=== PATIENT | male | born 1950 | race Caucasian/White ===

== ENCOUNTER 2016-12-02 05:15 | Inpatient (IN) ==
[2016-11-17 10:09] LABS: Basophils % 0.3 % (0.0-0.8); Eosinophils # 0.1 10*3/uL (0.0-0.87); Eosinophils % 1.2 % (0.00-10.9); Hematocrit 48.7 VOL% (42.0-52.0); Immature Granulocytes % 1.6 %; Immature Granulocytes Absolute 0.15 #; Lymphocytes # 1.6 10*3/uL (1.4-4.0); Lymphocytes % 17.3 % (21.2-54.2); Mean Corpuscular HGB Conc 34.9 GM/DL (32-36); Mean Corpuscular Hemoglobin 30 PG (27-34); Mean Corpuscular Volume 84.8 FL (87-102); Mean Platelet Volume 8.7 FL (9.6-12.0); Monocytes # 0.6 10*3/uL (0.11-0.8); Monocytes % 6.5 % (1.7-12.7); Neutrophils # 6.8 10*3/uL (1.4-7.4); Neutrophils % 73.1 % (38.7-73.9); Platelet Count 253 T/CUMM (130-400); Red Blood Count 5.74 MC/CUMM (3.8-5.5); Red Cell Distribution Width 12.7 % (9.3-17.3); White Blood Count 9.3 T/CUMM (4-12)
[2016-11-17 10:19] LABS: PT Patient Result 10.7 SECS; Partial Thromboplastin Time 30.4 SECS (0-40)
[2016-11-17 10:26] LABS: Apearance,Urine CLEAR (Clear); Bilirubin,Urine Negative (Negative); Blood, Urine Negative (Negative); Glucose,Urine (UA) Negative (Negative); Ketones,Urine Negative (Negative); Mucus,Urine Occasional /LPF (Occasional); Nitrite,Urine Negative (Negative); Protein,Urine Negative; RBC,Urine 1 /HPF (0-4); Urine Color Yellow (Yellow); Urine Specific Gravity 1.018 (1.001-1.035); Urine Urobilinogen < 2.0 EU/DL (0.2-1.0); WBC,Urine <1 /HPF (0-6)
[2016-11-17 10:41] LABS: Albumin 3.5 G/DL (3.4-5.0); Bilirubin,Total 0.6 MG/DL (0.2-1.0); Calcium 9.5 MG/DL (8.5-10.1); Osmolality,Calculated 271.1 MOS/KG (273-304); Total Protein 6.9 G/DL (6.4-8.3)
--- NOTE | 2016-11-17 11:09 | EKG Report ---
Stationary ECG Study [facility] Test Date: 11/17/2016 11:09:15 AM Pat Name: MAURICE MAYORGA Department: Room: Gender: M [employer]: MEIR 12-02-16 : 1950 Requested by: David Blanca Order Number: [id number] Reading MD: GEETHA FERRELL Intervals Beatrice Rate: 79 P: 66 FL: 163 QRS: 53 QRSD: 93 T: 29 QT: 351 QTc: 386 Interpretive Statements SINUS RHYTHM Electronically Signed On 11-18-16 06:28:22 CDT by GEETHA FERRELL [email or web address]
--- NOTE | 2016-11-17 11:16 | XRay Report ---
XR chest 2V Indication: Preop evaluation Comparison: None Technique: Frontal and lateral views of the chest. Findings: Heart size appears within normal limits. Chronic change of the lungs without focal consolidation, pleural effusion, or pneumothorax. Bilateral glenohumeral prostheses partially visualized. Question dislocation of the left glenohumeral prosthesis. IMPRESSION: As above. PROCEDURE INTERPRETED AT [facility] DEPARTMENT OF RADIOLOGY Final Report Signed by: Dr Varghese Salas
[2016-12-02] MEDS ORDERED: FAMOTIDINE 20 MG TABLET PO ONE (06:00)
[2016-12-02] MEDS ORDERED: VANCOMYCIN INJ 1,000 MG in SODIUM CHLORIDE 0.9% 250 ML IV ONE (06:00)
[2016-12-02] MEDS ORDERED: DIAZEPAM 5 MG TABLET PO ONE (06:00)
[2016-12-02] MEDS ORDERED: ceFAZolin 1,000 MG VIAL ONE (06:10)
[2016-12-02] MEDS ORDERED: SODIUM CHLORIDE 0.9% 100 ML IV ONE ×2 (06:10→09:18)
[2016-12-02] MEDS ORDERED: DIAZEPAM 5 MG TABLET ONE (06:10)
[2016-12-02] MEDS ORDERED: VANCOMYCIN 1,000 MG VIAL ONE (06:10)
[2016-12-02] MEDS ORDERED: FAMOTIDINE 20 MG TABLET ONE (06:10)
[2016-12-02] MEDS ORDERED: TRANEXAMIC ACID 1,000 MG/10 ML VIAL IV ONE (06:29)
--- NOTE | 2016-12-02 06:47 | History and Physical Update ---
History and Physical Update - History and Physical H&P was reviewed, the patient examined and there: are no changes in the patients condition since last H&P was completed.
[2016-12-02] MEDS ORDERED: PHENYLEPHRINE 1 MG/10 ML SYRINGE IV ONE (07:00)
[2016-12-02] MEDS ORDERED: PROPOFOL 200 MG/20 ML VIAL IV ONE (07:00)
[2016-12-02] MEDS ORDERED: LACTATED RINGERS 1,000 ML IV SCH (07:00)
[2016-12-02] MEDS ORDERED: LIDOCAINE 1% 5 ML VIAL ONE (07:00)
[2016-12-02] MEDS ORDERED: NITROGLYCERIN SL 0.4 MG TABLET SL PRN (07:36)
[2016-12-02] MEDS ORDERED: clonazePAM 0.5 MG TABLET PO PRN (07:36)
[2016-12-02] MEDS ORDERED: diphenhydrAMINE CAP 25 MG CAPSULE PO PRN (07:37)
[2016-12-02] MEDS ORDERED: ZALEPLON 5 MG CAPSULE PO PRN (07:37)
[2016-12-02] MEDS ORDERED: oxyCODONE IR 5 MG TABLET PO PRN (07:37)
[2016-12-02] MEDS ORDERED: MAGNESIUM HYDROXIDE SUSP 30 ML UDCUP PO PRN (07:37)
[2016-12-02] MEDS ORDERED: ONDANSETRON 4 MG/2 ML VIAL IV PRN ×2 (07:37→09:12)
[2016-12-02] MEDS ORDERED: ROPIVACAINE 0.5% 30 ML VIAL ONE ×2 (08:18→10:00)
[2016-12-02] MEDS ORDERED: ONDANSETRON 4 MG/2 ML VIAL ONE (09:00)
[2016-12-02] MEDS ORDERED: HYDROmorphone 2 MG/1 ML VIAL ONE ×2 (09:00→09:35)
[2016-12-02] MEDS: HYDROmorphone 2 MG/1 ML VIAL IV PRN ×6 (09:03→09:40)
[2016-12-02] MEDS ORDERED: fentaNYL 100 MCG/2 ML VIAL ONE (09:17)
[2016-12-02] MEDS ORDERED: ACETAMINOPHEN 1,000 MG/100 ML VIAL IV ONE (09:18)
[2016-12-02] MEDS ORDERED: MIDAZOLAM 2 MG/2 ML VIAL ONE (09:18)
[2016-12-02] MEDS ORDERED: SODIUM CHLORIDE 0.9% 250 ML IV ONE (09:18)
[2016-12-02] MEDS ORDERED: LACTATED RINGERS 1,000 ML IV ONE (09:18)
[2016-12-02 09:23] LABS: Apearance,Urine CLEAR (Clear); Bilirubin,Urine Negative (Negative); Blood, Urine Small mg/dL (Negative); Glucose,Urine (UA) Negative (Negative); Ketones,Urine 20 mg/dL (Negative); Mucus,Urine Occasional /LPF (Occasional); Nitrite,Urine Negative (Negative); Protein,Urine 30 MG/DL; RBC,Urine 7 /HPF (0-4); Squamous Epithelial Cell,Urine Occasional /HPF (0-10); Urine Color Dark yellow (Yellow); Urine Specific Gravity 1.032 (1.001-1.035); WBC,Urine <1 /HPF (0-6)
[2016-12-02] MEDS ORDERED: KETOROLAC 30 MG/1 ML VIAL ONE (09:43)
[2016-12-02] MEDS: KETOROLAC 30 MG/1 ML VIAL IV SCH ×3 (09:45→21:26)
--- NOTE | 2016-12-02 10:14 | XRay Report ---
XR knee 2V RT Indication: TKA. Right knee 2 views: Immediate postoperative changes of right TKA noted with surgical drains and skin derik in the field of view. Alignment is normal. No periprosthetic fracture seen. Impression: Anatomic alignment post TKA. PROCEDURE INTERPRETED AT [facility] DEPARTMENT OF RADIOLOGY Final Report Signed by: Maximilian Hamilton M.D.
--- NOTE | 2016-12-02 10:31 | Operative Note ---
Date of procedure: 12/02/16 Procedure: DIAGNOSIS: Right knee primary osteoarthrosis PROCEDURE: Right total knee arthroplasty (cpt #36374) SURGEON: Brenda PARTITION SETTER: Guanaco Rodriges ANESTHESIA: Spinal with a postoperative adductor canal block PROCEDURE and FINDINGS: After adequate was induced, the patient's knee was prepped and draped in the usual sterile fashion. The limb was exsanguinated with Esmarch. Tourniquet was inflated to 300 mmHg. A median parapatellar approach was made. Femur was cut using an intramedullary guide and a 4 in 1 cutting jig in 5 degrees of valgus. ACL and menisci were excised. Tibia was cut using intramedullary guide. Patella was cut using freehand technique. Components were trialed. Tibial fin was prepared. Components are cemented in place using Palacos cement and modern cementing techniques. Cement was removed. A 1/8 inch Hemovac drain was placed. The knee was well-balanced and full range of motion with central tracking patella. Deep layers closed with 0-0 Vicryl. Superficial layers were closed with 2-0 and 3-0 Vicryl. Skin was approximated with derik. Bacitracin and a sterile dressing was applied. Patient was transferred to recovery. A postoperative adductor canal block is anticipated. COMPONENTS: The [employer] Persona system was used. 10 standard CR femur, F natural tibia, 10 mm liner, 35 mm patella TOURNIQUET TIME: 29 minutes Surgeon / Physician: David Gutierrez Jr. Results - Labs CBC & BMP: 11/17/16 10:03 11/17/16 10:03 Discharge Plan - Discharge Medications No Action Aspirin EC Tab 81 mg PO DAILY Ambien 10 mg PO BEDTIME PRN PRN Reason: Sleep clonazePAM [Clonazepam] 0.5 mg PO BEDTIME PRN PRN Reason: Sleep Nitroglycerin Sl Tab [Nitrostat] 0.4 mg SL Q5M PRN #1 bottle PRN Reason: Chest Pain - Follow Up or Referral - Forms/Instructions
[2016-12-02] MEDS: LACTATED RINGERS 1,000 ML IV SCH ×2 (11:03→20:07)
[2016-12-02] MEDS: ASPIRIN EC 81 MG TABLET PO SCH (11:21)
[2016-12-02] MEDS: DOCUSATE SODIUM 100 MG CAPSULE PO SCH (11:21)
[2016-12-02] MEDS: ACETAMINOPHEN 500 MG TABLET PO SCH ×2 (11:21→16:58)
--- NOTE | 2016-12-02 14:20 | Anesthesia Post-Op ---
Anesthesia Post OP - Post Ansesthetic Evaluation Patient seen in post op: Yes Resp: within normal limits CV: within normal limits Mental: within normal limits Temp: within normal limits [id number]-[id number]: within normal limits Nausea and Vomiting: within normal limits Pain: within normal limits
--- NOTE | 2016-12-02 15:05 | Orthopedic Progress Note ---
Orthopedics - Subjective Interval history: Comfortable post op. The HV disconnected at the junction. The Hemovac was pulled. He has some mild bloody drainage on his dressing. He is neurovascularly intact. Plan: Continue with orders. Exam - Constitutional Vitals: Period Temp Pulse Resp BP Sys/Moreira Pulse Ox Last 24 Hr 97.1 F-99.3 F 74-92 16-20 96-148/51-98 93-99 Results - Labs CBC & BMP: 11/17/16 10:03 11/17/16 10:03
[2016-12-02] MEDS: ceFAZolin 2,000 MG in PREMIX 1 EACH IV SCH (16:20)
[2016-12-02] MEDS: MORPHINE 2 MG/1 ML SYRINGE IV PRN ×2 (18:21→21:25)
[2016-12-02] MEDS: oxyCODONE IR 5 MG TABLET PO PRN (20:05)
[2016-12-03] MEDS: MORPHINE 2 MG/1 ML SYRINGE IV PRN ×2 (00:36→00:37)
[2016-12-03] MEDS: ceFAZolin 2,000 MG in PREMIX 1 EACH IV SCH (00:37)
[2016-12-03] MEDS: DOCUSATE SODIUM 100 MG CAPSULE PO SCH ×3 (00:38→22:25)
[2016-12-03] MEDS: ACETAMINOPHEN 500 MG TABLET PO SCH ×2 (00:38→05:17)
[2016-12-03] MEDS: FONDAPARINUX 2.5 MG/0.5 ML SYRINGE SUBCUT SCH (00:39)
[2016-12-03] MEDS: oxyCODONE IR 5 MG TABLET PO PRN ×5 (03:07→23:35)
[2016-12-03] MEDS: KETOROLAC 30 MG/1 ML VIAL IV SCH (03:08)
[2016-12-03 06:08] LABS: Basophils % 0.3 % (0.0-0.8); Eosinophils # 0.1 10*3/uL (0.0-0.87); Eosinophils % 2.2 % (0.00-10.9); Hematocrit 34.5 VOL% (42.0-52.0); Hemoglobin 11.9 GM/DL (14.0-18.0); Immature Granulocytes % 1.3 %; Immature Granulocytes Absolute 0.08 #; Lymphocytes # 0.6 10*3/uL (1.4-4.0); Lymphocytes % 8.7 % (21.2-54.2); Mean Corpuscular HGB Conc 34.5 GM/DL (32-36); Mean Corpuscular Hemoglobin 29 PG (27-34); Mean Corpuscular Volume 83.7 FL (87-102); Mean Platelet Volume 9.6 FL (9.6-12.0); Monocytes # 0.1 10*3/uL (0.11-0.8); Monocytes % 2.2 % (1.7-12.7); Neutrophils # 5.4 10*3/uL (1.4-7.4); Neutrophils % 85.3 % (38.7-73.9); Platelet Count 150 T/CUMM (130-400); Red Blood Count 4.12 MC/CUMM (3.8-5.5); Red Cell Distribution Width 12.7 % (9.3-17.3); White Blood Count 6.3 T/CUMM (4-12)
[2016-12-03 06:48] LABS: Calcium 8.4 MG/DL (8.5-10.1); Osmolality,Calculated 275.8 MOS/KG (273-304); Potassium 3.7 MMOL/L (3.5-5.1)
[2016-12-03] MEDS ORDERED: LACTATED RINGERS 500 ML IV ONE (06:53)
[2016-12-03] MEDS ORDERED: ACETAMINOPHEN 325 MG TABLET PO PRN (07:38)
[2016-12-03] MEDS: HYDROmorphone 2 MG/1 ML VIAL IV PRN ×5 (07:45→22:20)
--- NOTE | 2016-12-03 08:20 | Orthopedic Progress Note ---
Orthopedics - Subjective Interval history: Mr Christopher was seen early today. Complaining of pain. Also doesn't feel morphine is helping. Was hypotensive overnight. nv ok. bolus and switch to dilaudid. Otherwise continue with orders. Probably home tomorrow. Exam - Constitutional Vitals: Period Temp Pulse Resp BP Sys/Moreira Pulse Ox Last 24 Hr 97.1 F-99.3 F 74-101 15-20 87-148/41-98 92-99 Results - Labs CBC & BMP: 12/03/16 04:24 12/03/16 04:24
[2016-12-03] MEDS: CELECOXIB 200 MG CAPSULE PO SCH (09:28)
[2016-12-03] MEDS: ASPIRIN EC 81 MG TABLET PO SCH (09:28)
--- NOTE | 2016-12-03 14:18 | Pathology Report from [facility] ---
[facility] ACCESSION # : [id number] PATIENT NAME : Johnathan Christopher ORDERING DR : APARNA GONSALEZ MD CLINICAL HX: Right knee osteoarthritis POST-OP DX: Same SPECIMEN INFO: Right knee bone and tissue GROSS DESCRIPTION: The specimen is received in formalin labeled with the patients name and consists of multiple fragments of bone, cartilage and some soft tissue measuring 15.2 x 9.1 cm. The articular surface is focally degenerative with large areas of bone eburnation measuring up to 4.0 cm. 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 DIAGNOSIS FOR JOHNATHAN CHRISTOPHER: RIGHT KNEE BONE AND TISSUE: Gross and microscopic findings consistent with osteoarthritis. COLLECTED DATE: 12/02/2016 [facility] REPORT DATE: 12/03/2016 ELECTRONICALLY SIGNED BY: Coy Tillman III, M.D. 12/03/2016 - 9:58:18 MTDDiane
[2016-12-04] MEDS: HYDROmorphone 2 MG/1 ML VIAL IV PRN (02:57)
[2016-12-04] MEDS: FONDAPARINUX 2.5 MG/0.5 ML SYRINGE SUBCUT SCH (03:05)
[2016-12-04] MEDS: oxyCODONE IR 5 MG TABLET PO PRN ×2 (05:06→20:14)
[2016-12-04 07:24] LABS: Basophils % 0.1 % (0.0-0.8); Eosinophils # 0.3 10*3/uL (0.0-0.87); Eosinophils % 4.1 % (0.00-10.9); Hematocrit 40.2 VOL% (42.0-52.0); Hemoglobin 13.9 GM/DL (14.0-18.0); Immature Granulocytes % 1.5 %; Immature Granulocytes Absolute 0.11 #; Lymphocytes # 0.9 10*3/uL (1.4-4.0); Lymphocytes % 11.5 % (21.2-54.2); Mean Corpuscular HGB Conc 34.6 GM/DL (32-36); Mean Corpuscular Hemoglobin 29 PG (27-34); Mean Corpuscular Volume 83.8 FL (87-102); Mean Platelet Volume 9.8 FL (9.6-12.0); Monocytes # 0.4 10*3/uL (0.11-0.8); Monocytes % 4.9 % (1.7-12.7); Neutrophils # 5.7 10*3/uL (1.4-7.4); Neutrophils % 77.9 % (38.7-73.9); Platelet Count 205 T/CUMM (130-400); Red Cell Distribution Width 12.6 % (9.3-17.3); White Blood Count 7.4 T/CUMM (4-12)
--- NOTE | 2016-12-04 07:34 | Orthopedic Progress Note ---
Orthopedics - Subjective Interval history: Comfortable. Still having some pain to the leg. Was able to walk very short distance in the [place] yesterday. Dressing is clean, dry and intact. Right lower extremities neurovascularly unchanged. Continue per protocol. Plan home tomorrow. Exam - Constitutional Vitals: Period Temp Pulse Resp BP Sys/Moreira Pulse Ox Last 24 Hr 96.1 F-98.7 F 74-101 15-20 105-133/63-80 93-100 Results - Labs CBC & BMP: 12/04/16 05:31 12/03/16 04:24
[2016-12-04] MEDS: DOCUSATE SODIUM 100 MG CAPSULE PO SCH ×2 (08:10→20:13)
[2016-12-04] MEDS: ASPIRIN EC 81 MG TABLET PO SCH (08:10)
[2016-12-04] MEDS: CELECOXIB 200 MG CAPSULE PO SCH (08:10)
[2016-12-05] MEDS: FONDAPARINUX 2.5 MG/0.5 ML SYRINGE SUBCUT SCH (01:23)
[2016-12-05] MEDS: oxyCODONE IR 5 MG TABLET PO PRN (04:22)
--- NOTE | 2016-12-05 06:58 | Discharge Summary ---
Hospital Course - Hospital Course Hospital Course: Mr Christopher was admitted after undergoing an uncomplicated right total knee arthroplasty. He received perioperative DVT and antimicrobial prophylaxis. Patient received physical therapy. He was discharged home in stable condition. Right lower extremities neurovascularly unchanged. His dressing is clean, dry and intact. Discharge instructions were reviewed. Specialty Discharge - Follow Up or Referrals Follow up with: David Gutierrez Jr., MD [Physician] - 01/05/17 9:30 am Discharge Plan - Discharge Data Disposition: Home Health Service Condition at Discharge: Stable Discharge Diet: advance to your usual diet Hygiene: may shower Weight Bearing at Discharge: weight bear as tolerated Driving: not until seen by doctor - Discharge Medications New HYDROcodone/ACETAMIN 7.5-325 [Castalia 7.5-325] 2 tablet PO Q4H PRN tablet PRN Reason: Moderate Pain unrelieved by 1 HYDROcodone/ACETAMIN 7.5-325 [Castalia 7.5-325] 1 tablet PO Q4H PRN tablet PRN Reason: Pain Moderate (4-7) Continue Aspirin EC Tab 81 mg PO DAILY Zolpidem Tartrate [Ambien] 10 mg PO BEDTIME PRN #0 PRN Reason: Sleep clonazePAM [Clonazepam] 0.5 mg PO BEDTIME PRN PRN Reason: Sleep Nitroglycerin Sl Tab [Nitrostat] 0.4 mg SL Q5M PRN #1 bottle PRN Reason: Chest Pain - Follow Up or Referral Follow Up: David Gutierrez Jr., MD [Physician] - 01/05/17 9:30 am - Forms/Instructions Additional Discharge Instructions: Daily dry dressing changes. Weightbearing as tolerated. CPM for 3 weeks. Arrange walker and bedside commode for home use. Wear RILEY hose for 1 month. Discontinue derik and Steri-Strip wound on December 15, 2016. Follow-up appointment in 4 weeks. Prescription for Castalia 7.5 with 30 tablets was written. Take aspirin 325 mg by mouth daily for 21 days. Resume aspirin 81 mg then. Exam - Constitutional Vitals: Period Temp Pulse Resp BP Sys/Moreira Pulse Ox Last 24 Hr 96.1 F-98.0 F 76-89 15-20 104-138/61-78 93-98 Discharge Results Labs on day of discharge: Labs from last 24 hours 12/04/16 05:31 WBC 7.4 RBC 4.80 Hgb 13.9 L D Hct 40.2 L MCV 83.8 L MCH 29 MCHC 34.6 RDW 12.6 Plt Count 205 D MPV 9.8 Neut % (Auto) 77.9 H Lymph % (Auto) 11.5 L [place] % (Auto) 4.9 Eos % (Auto) 4.1 Baso % (Auto) 0.1 Neut # (Auto) 5.7 Lymph # (Auto) 0.9 L [place] # (Auto) 0.4 Eos # (Auto) 0.3 Baso # (Auto) 0.0 Immature Gran % 1.5 Nucleated RBC % 0.0 Immature Gran # 0.11 Nucleated RBCs # 0.00 Immature Plt Fraction 0.0 DS: Provider Date of admission: 12/02/16 05:34 Primary care physician: Lisbet Momin Attending physician on admission: David Gutierrez Jr., Consults: 12/02/16 07:37 Consult to Case Mgmt/Social Srvs [CONS] Routine Reason for Case Mgmt/Social Srvs: Rehab Home Health Equipment Consult Comment: Bedside Commode, Deliver to RM 317 before Pt is D/C home Consult to Occupational Therapy [CONS] Routine Reason for Occupational Therapy: Evaluate and Treat Consult Comment: ADL's Consult to Physical Therapy [CONS] Routine Reason for Physical Therapy: Evaluate and Treat Gait Training 12/03/16 15:36 Consult to Physical Therapy [CONS] Routine Reason for Physical Therapy: Other Consult Comment: Deliver Standard Walker to Pt's room 317 before D/C'd home. Discharging clinician: David Gutierrez Jr., Expected date of discharge: 12/05/16
[2016-12-05] MEDS: DOCUSATE SODIUM 100 MG CAPSULE PO SCH (09:01)
[2016-12-05] MEDS: ASPIRIN EC 81 MG TABLET PO SCH (09:01)
[2016-12-05] MEDS: CELECOXIB 200 MG CAPSULE PO SCH (09:01)
[2016-12-05 11:39] VITALS: BP 120/74
== END 2016-12-05 11:40 | disposition home health service (06) | DRG 470 ==
LOC: N.SDSINP 05:34 → N.3E 09:20
PROVIDERS: ADMIT Orthopaedic Surgery; ATTEND Orthopaedic Surgery

== ENCOUNTER 2018-09-20 13:19 | Inpatient (IN) ==
[2018-09-20] MEDS ORDERED: cefTRIAXone 2,000 MG in SODIUM CHLORIDE 0.9% 100 ML IV STA (13:27)
[2018-09-20] MEDS ORDERED: methylPREDNISolone SOD SUC 125 MG/2 ML VIAL IV STA (13:46)
[2018-09-20] MEDS ORDERED: ALBUTEROL 2.5 MG/3 ML NEB RESP TX STA (13:46)
[2018-09-20] MEDS ORDERED: ACETAMINOPHEN 325 MG TABLET PO PRN (14:57)
[2018-09-20] MEDS ORDERED: ONDANSETRON 4 MG/2 ML VIAL IV PRN (14:57)
[2018-09-20] MEDS ORDERED: ALBUTEROL/IPRATROPIUM 3 ML NEB RESP TX PRN (15:03)
[2018-09-20 15:20] LABS: INR 0.9; PT Patient Result 10.2 SECS; Partial Thromboplastin Time 24.1 SECS (0-40)
[2018-09-20 15:38] LABS: Basophils % 0.6 % (0.0-0.8); Eosinophils # 0.1 10*3/uL (0.0-0.87); Eosinophils % 1.1 % (0.00-10.9); Hematocrit 46.7 VOL% (42.0-52.0); Hemoglobin 14.2 GM/DL (14.0-18.0); Immature Granulocytes % 4.5 %; Immature Granulocytes Absolute 0.31 #; Lymphocytes # 1.1 10*3/uL (1.4-4.0); Lymphocytes % 15.7 % (21.2-54.2); Mean Corpuscular HGB Conc 30.4 GM/DL (32-36); Mean Corpuscular Volume 94.3 FL (87-102); Mean Platelet Volume 10.1 FL (9.6-12.0); Monocytes % 6.2 % (1.7-12.7); Neutrophils % 71.9 % (38.7-73.9); Platelet Count 172 T/CUMM (130-400); Red Blood Count 4.95 MC/CUMM (3.8-5.5); Red Cell Distribution Width 14.6 % (9.3-17.3)
[2018-09-20 15:55] LABS: Albumin 2.7 G/DL (3.4-5.0); Bilirubin,Total 1.6 MG/DL (0.2-1.0); Calcium 8.2 MG/DL (8.5-10.1); Osmolality,Calculated 274.5 MOS/KG (273-304); Total Protein 6.1 G/DL (6.4-8.3)
[2018-09-20 16:41] LABS: Apearance,Urine CLEAR (Clear); Bacteria,Urine Occasional /HPF (Few); Bilirubin,Urine Negative (Negative); Blood, Urine Negative (Negative); Glucose,Urine (UA) Negative (Negative); Ketones,Urine 5 mg/dL (Negative); Mucus,Urine Occasional /LPF (Occasional); Nitrite,Urine Negative (Negative); Protein,Urine 100 MG/DL; RBC,Urine 1 /HPF (0-4); Urine Color Amber (Yellow); Urine Specific Gravity 1.025 (1.001-1.035); WBC,Urine <1 /HPF (0-6)
[2018-09-20] MEDS ORDERED: clonazePAM 0.5 MG TABLET PO PRN (17:23)
[2018-09-20] MEDS ORDERED: ZALEPLON 5 MG CAPSULE PO PRN (18:59)
[2018-09-20 19:21] LABS: Barbiturates Screen,Urine Negative (Negative); Benzodiazepines Screen,Urine Positive (Negative); Cannabinoid Screen,Urine Negative (Negative); Opiate Screen,Urine Positive (Negative); Phencyclidine Screen,Urine Negative (Negative)
[2018-09-20] MEDS: BUDESONIDE/FORMOTEROL 160-4.5 INHALER 6 GM INH SCH (21:18)
[2018-09-21 04:47] LABS: Calcium 8.5 MG/DL (8.5-10.1); Osmolality,Calculated 274.8 MOS/KG (273-304)
[2018-09-21 04:51] LABS: Basophils % 0.3 % (0.0-0.8); Eosinophils % 0.2 % (0.00-10.9); Hematocrit 45.3 VOL% (42.0-52.0); Immature Granulocytes % 5.7 %; Immature Granulocytes Absolute 0.34 #; Lymphocytes # 0.8 10*3/uL (1.4-4.0); Lymphocytes % 13.3 % (21.2-54.2); Mean Corpuscular HGB Conc 30.9 GM/DL (32-36); Mean Corpuscular Volume 93.8 FL (87-102); Mean Platelet Volume 10.3 FL (9.6-12.0); Monocytes % 0.7 % (1.7-12.7); Neutrophils % 79.8 % (38.7-73.9); Platelet Count 219 T/CUMM (130-400); Red Blood Count 4.83 MC/CUMM (3.8-5.5); Red Cell Distribution Width 14.6 % (9.3-17.3); White Blood Count 5.9 T/CUMM (4-12)
[2018-09-21 04:59] LABS: Hypochromasia 1+; Lymphocytes 7 % (20-55); Platelet Estimate Adequate; Segmented Neutrophils 89 % (50-85); Total Cells Counted 100
[2018-09-21 05:13] LABS: Thyroid Stimulating Hormone 0.412 uIU/ml (0.358-3.74)
[2018-09-21] MEDS: PANTOPRAZOLE 40 MG TABLET PO SCH (08:31)
[2018-09-21] MEDS: predniSONE 20 MG TABLET PO SCH (08:31)
[2018-09-21] MEDS: CLOPIDOGREL 75 MG TABLET PO SCH (08:31)
[2018-09-21] MEDS: BUDESONIDE/FORMOTEROL 160-4.5 INHALER 6 GM INH SCH ×2 (08:32→20:49)
[2018-09-21] MEDS: cefTRIAXone 2,000 MG in SYRINGE 1 EACH IV SCH (10:20)
[2018-09-21] MEDS ORDERED: ZIPRASIDONE 20 MG/1 ML VIAL IM PRN (14:36)
[2018-09-21] MEDS: amLODIPine 5 MG TABLET PO SCH (16:56)
[2018-09-21] MEDS ORDERED: ZIPRASIDONE 20 MG CAPSULE PO ONE (21:00)
[2018-09-22] MEDS ORDERED: ZIPRASIDONE 20 MG/1 ML VIAL IM ONE (02:12)
[2018-09-22 05:48] LABS: Basophils # 0.1 10*3/uL (0.0-0.2); Basophils % 0.5 % (0.0-0.8); Eosinophils % 0.3 % (0.00-10.9); Hematocrit 43.3 VOL% (42.0-52.0); Hemoglobin 13.4 GM/DL (14.0-18.0); Immature Granulocytes % 5.7 %; Immature Granulocytes Absolute 0.56 #; Lymphocytes # 1.5 10*3/uL (1.4-4.0); Lymphocytes % 14.8 % (21.2-54.2); Mean Corpuscular HGB Conc 30.9 GM/DL (32-36); Mean Corpuscular Volume 92.9 FL (87-102); Mean Platelet Volume 10.2 FL (9.6-12.0); Neutrophils % 71.7 % (38.7-73.9); Platelet Count 231 T/CUMM (130-400); Red Blood Count 4.66 MC/CUMM (3.8-5.5); Red Cell Distribution Width 14.8 % (9.3-17.3); White Blood Count 9.8 T/CUMM (4-12)
[2018-09-22 06:04] LABS: Calcium 8.2 MG/DL (8.5-10.1); Osmolality,Calculated 280.5 MOS/KG (273-304)
[2018-09-22 06:43] LABS: Lymphocytes 20 % (20-55); Metamyelocytes 1 %; Platelet Estimate Normal; Polychromasia Few; Segmented Neutrophils 77 % (50-85); Total Cells Counted 100
[2018-09-22 06:44] LABS: Hypochromasia Slight
[2018-09-22] MEDS: cefTRIAXone 2,000 MG in SYRINGE 1 EACH IV SCH (08:01)
[2018-09-22] MEDS: predniSONE 20 MG TABLET PO SCH (08:01)
[2018-09-22] MEDS: PANTOPRAZOLE 40 MG TABLET PO SCH (08:01)
[2018-09-22] MEDS: BUDESONIDE/FORMOTEROL 160-4.5 INHALER 6 GM INH SCH ×2 (08:01→08:03)
[2018-09-22] MEDS: CLOPIDOGREL 75 MG TABLET PO SCH (08:01)
[2018-09-22] MEDS: amLODIPine 5 MG TABLET PO SCH (08:01)
[2018-09-22 12:07] VITALS: BP 154/86
== END 2018-09-22 15:26 | disposition home health service (06) | DRG 872 ==
LOC: N.ED 13:19 → N.EDINP 14:18 → N.5E 18:48
PROVIDERS: ADMIT Internal Medicine; ATTEND Internal Medicine

== ENCOUNTER 2019-01-09 09:59 | Observation (INO) ==
[2019-01-09 13:42] LABS: Basophils # 0.1 10*3/uL (0.0-0.2); Basophils % 0.5 % (0.0-0.8); Eosinophils # 0.1 10*3/uL (0.0-0.87); Eosinophils % 0.9 % (0.00-10.9); Hematocrit 49.9 VOL% (42.0-52.0); Hemoglobin 15.9 GM/DL (14.0-18.0); Immature Granulocytes % 1.1 %; Immature Granulocytes Absolute 0.18 #; Lymphocytes # 1.4 10*3/uL (1.4-4.0); Mean Corpuscular HGB Conc 31.9 GM/DL (32-36); Mean Corpuscular Volume 88.9 FL (87-102); Mean Platelet Volume 9.6 FL (9.6-12.0); Monocytes % 4.4 % (1.7-12.7); Neutrophils % 84.1 % (38.7-73.9); Platelet Count 175 T/CUMM (130-400); Red Blood Count 5.61 MC/CUMM (3.8-5.5); Red Cell Distribution Width 15.4 % (9.3-17.3); White Blood Count 16.1 T/CUMM (4-12)
[2019-01-09 13:52] LABS: Barbiturates Screen,Urine Negative (Negative); Benzodiazepines Screen,Urine Positive (Negative); Cannabinoid Screen,Urine Negative (Negative); Opiate Screen,Urine Positive (Negative); Phencyclidine Screen,Urine Negative (Negative)
[2019-01-09 13:54] LABS: Apearance,Urine CLEAR (Clear); Bilirubin,Urine Negative (Negative); Blood, Urine Negative (Negative); Glucose,Urine (UA) Negative (Negative); Ketones,Urine 20 mg/dL (Negative); Mucus,Urine Occasional /LPF (Occasional); Nitrite,Urine Negative (Negative); Protein,Urine Negative; RBC,Urine 4 /HPF (0-4); Squamous Epithelial Cell,Urine Occasional /HPF (0-10); Urine Color Yellow (Yellow); Urine Specific Gravity 1.029 (1.001-1.035); WBC,Urine 20 /HPF (0-6)
[2019-01-09 14:18] LABS: Albumin 3.3 G/DL (3.4-5.0); Bilirubin,Total 1.7 MG/DL (0.2-1.0); Calcium 8.8 MG/DL (8.5-10.1); Osmolality,Calculated 276.5 MOS/KG (273-304); Thyroid Stimulating Hormone 0.858 uIU/ml (0.358-3.74); Total Protein 6.2 G/DL (6.4-8.3)
[2019-01-09 14:42] LABS: Albumin 3.3 G/DL (3.4-5.0); Bilirubin,Direct 0.29 MG/DL (0.0-0.20); Bilirubin,Indirect 1.4 MG/DL (0.0-1.0); Bilirubin,Total 1.7 MG/DL (0.2-1.0); Total Protein 6.2 G/DL (6.4-8.3)
[2019-01-09] MEDS ORDERED: ONDANSETRON 4 MG/2 ML VIAL IV PRN (17:22)
[2019-01-09] MEDS ORDERED: ACETAMINOPHEN 325 MG TABLET PO PRN (17:22)
[2019-01-09] MEDS ORDERED: SODIUM CHLORIDE 0.9% 1,000 ML IV SCH (17:30)
[2019-01-09] MEDS ORDERED: INFLUENZA VIRUS VACCINE 0.5 ML SYRINGE IM ONE (20:23)
[2019-01-09] MEDS: ALBUTEROL/IPRATROPIUM 3 ML NEB RESP TX SCH (20:36)
[2019-01-09] MEDS ORDERED: clonazePAM 0.5 MG TABLET PO SCH (21:00)
[2019-01-09] MEDS: cefTRIAXone 1,000 MG in SYRINGE 1 EACH IV SCH (21:39)
[2019-01-09] MEDS: POLYETHYLENE GLYCOL POWDER 17 GM PACK PO SCH (21:39)
[2019-01-09] MEDS: AZITHROMYCIN INJ 500 MG in SODIUM CHLORIDE 0.9% 250 ML IV SCH (21:39)
[2019-01-09 22:08] LABS: Hepatitis B Core IgM Quant 0.14 Index; Hepatitis B Surface Ag Quant < 0.10 Index; Hepatitis B Surface Ag Result Negative (Negative); Hepatitis C Virus Ab Quant 0.02 Index; Hepatitis C Virus Ab Result Negative (Negative)
[2019-01-10] MEDS: ALBUTEROL/IPRATROPIUM 3 ML NEB RESP TX SCH ×3 (00:44→13:26)
[2019-01-10] MEDS ORDERED: LORazepam 2 MG/1 ML VIAL IV ONE (04:35)
[2019-01-10 04:36] LABS: Basophils # 0.1 10*3/uL (0.0-0.2); Basophils % 0.6 % (0.0-0.8); Eosinophils # 0.1 10*3/uL (0.0-0.87); Eosinophils % 1.4 % (0.00-10.9); Hematocrit 44.6 VOL% (42.0-52.0); Immature Granulocytes % 1.5 %; Immature Granulocytes Absolute 0.15 #; Lymphocytes # 2.1 10*3/uL (1.4-4.0); Mean Corpuscular HGB Conc 31.4 GM/DL (32-36); Mean Corpuscular Volume 88.8 FL (87-102); Mean Platelet Volume 10.4 FL (9.6-12.0); Neutrophils % 70.5 % (38.7-73.9); Platelet Count 176 T/CUMM (130-400); Red Blood Count 5.02 MC/CUMM (3.8-5.5); Red Cell Distribution Width 15.3 % (9.3-17.3); White Blood Count 9.8 T/CUMM (4-12)
[2019-01-10 04:59] LABS: Calcium 8.5 MG/DL (8.5-10.1); Osmolality,Calculated 284.1 MOS/KG (273-304)
[2019-01-10] MEDS: AZITHROMYCIN INJ 500 MG in SODIUM CHLORIDE 0.9% 250 ML IV SCH (08:33)
[2019-01-10] MEDS: cefTRIAXone 1,000 MG in SYRINGE 1 EACH IV SCH (08:33)
[2019-01-10] MEDS ORDERED: PANTOPRAZOLE 40 MG TABLET PO SCH (09:00)
[2019-01-10] MEDS ORDERED: LORazepam 2 MG/1 ML VIAL IV PRN (10:43)
[2019-01-10] MEDS: POLYETHYLENE GLYCOL POWDER 17 GM PACK PO SCH (14:47)
[2019-01-10 15:17] VITALS: BP 150/85
== END 2019-01-10 18:50 | disposition home or self-care (01) ==
LOC: N.ED 09:59 → N.EDINP 09:59 → N.2E 18:57
PROVIDERS: ADMIT Emergency Medicine; ATTEND Emergency Medicine